=== PATIENT | male | born 1970 | race Two or more races ===

== ENCOUNTER 2019-04-25 18:32 | Inpatient (IN) | payer SELFPAY ==
[~2019-04-25] VITALS: Ht 172.7 cm; Wt 81.6 kg
[2019-04-25 20:07] LABS: CHLORIDE 105 mEq/L (98-107)
[2019-04-25 20:18] LABS: BASOPHILS % 0.3 % (0.0-2.0); EOSINOPHILS % 0.9 % (0.0-5.0); HEMATOCRIT. 43.8 % (42.0-52.0); HEMOGLOBIN. 15.1 g/dL (14.0-18.0); LYMPHOCYTES % 10.4 % (20.0-50.0); MEAN CORPUSCULAR HEMOGLOBIN 30.6 pg (28.0-32.0); MEAN CORPUSCULAR VOLUME 88.7 fL (80.0-94.0); MEAN PLATELET VOLUME 7.9 fl (7.4-10.4); MONOCYTES % 6.2 % (2.0-8.0); NEUTROPHILS % 82.2 % (40.0-76.0); PLATELET 255 x1000/uL (130-400); RED BLOOD CELL COUNT 4.93 mill/uL (4.7-6.1); RED CELL DISTRIBUTION WIDTH 13.2 % (11.6-14.6)
[2019-04-26] MEDS ORDERED: FOLIC ACID 1 MG, THIAMINE HCL 100 MG, MVI, ADULT NO.1 10 ML in DEXTROSE 5% WATER 1,000 ML IV ONE ×4 (13:45)
[2019-04-26] MEDS ORDERED: CLONIDINE 0.1MG TABLET PO PRN (15:00)
[2019-04-26] MEDS ORDERED: GUAIFENESIN 200MG/10ML SUGAR FREE UDC PO PRN (15:00)
[2019-04-26] MEDS ORDERED: ONDANSETRON HCL 4MG/2ML INJ IV PRN (15:00)
[2019-04-26] MEDS ORDERED: HYDROCODONE/ACETAMINOPHEN 5/325MG TABLET PO PRN (15:00)
[2019-04-26] MEDS ORDERED: LORAZEPAM 0.5MG TABLET PO PRN (15:00)
[2019-04-26] MEDS ORDERED: IPRATROPIUM/ALBUTEROL 0.5-3(2.5)MG/3ML NEB HHN PRN (15:00)
[2019-04-26 15:40] LABS: *AMPHETAMINES SCREEN URINE NEGATIVE (NEGATIVE); *BARBITURATES SCREEN URINE NEGATIVE (NEGATIVE); *BENZODIAZEPINES SCREEN URINE NEGATIVE (NEGATIVE); *COCAINE SCREEN URINE NEGATIVE (NEGATIVE)
[2019-04-26 15:41] LABS: CANNABINOID URINE SCREEN NEGATIVE (NEGATIVE); METHADONE URINE SCREEN NEGATIVE (NEGATIVE); OPIATES URINE SCREEN NEGATIVE (NEGATIVE); PHENCYCLIDINE URINE SCREEN NEGATIVE (NEGATIVE)
[2019-04-26] MEDS ORDERED: FOLIC ACID 1MG TABLET PO SCH (22:00)
[2019-04-26] MEDS ORDERED: THIAMINE HCL 100MG TABLET PO SCH (22:00)
[2019-04-26] MEDS ORDERED: MULTIVITAMINS,THER W-MINERALS TABLET PO SCH (22:00)
[2019-04-26 22:20] VITALS: BP 135/85
[2019-04-26 23:00] VITALS: BP 135/85
[2019-04-27] VITALS: BP 130/81
[2019-04-27] MEDS: SODIUM CHLORIDE 0.9% 1,000 ML IV SCH ×3 (00:52→17:21)
[2019-04-27 05:45] VITALS: BP 129/91
[2019-04-27 08:00] VITALS: BP 129/89
[2019-04-27] MEDS: THIAMINE HCL 100MG TABLET PO SCH (09:39)
[2019-04-27] MEDS: FOLIC ACID 1MG TABLET PO SCH (09:40)
[2019-04-27] MEDS: MULTIVITAMINS,THER W-MINERALS TABLET PO SCH (09:40)
[2019-04-27] MEDS ORDERED: LEVETIRACETAM 500 MG in SODIUM CHLORIDE 0.9% 100 ML IV SCH (11:45)
[2019-04-27 12:00] VITALS: BP 123/90
[2019-04-27] MEDS: CHLORDIAZEPOXIDE 25MG CAPSULE PO SCH ×2 (13:13→21:00)
[2019-04-27 16:00] VITALS: BP 114/72
[2019-04-27 20:00] VITALS: BP 122/80
[2019-04-27] MEDS: LEVETIRACETAM 500MG PREMIX 100 ML IV SCH (21:00)
[2019-04-28] VITALS: BP 129/72
[2019-04-28 04:00] VITALS: BP 121/78
[2019-04-28] MEDS: CHLORDIAZEPOXIDE 25MG CAPSULE PO SCH ×3 (05:01→21:05)
[2019-04-28 08:00] VITALS: BP 127/85
[2019-04-28] MEDS: LEVETIRACETAM 500MG PREMIX 100 ML IV SCH ×2 (08:32→20:57)
[2019-04-28] MEDS: THIAMINE HCL 100MG TABLET PO SCH (08:32)
[2019-04-28] MEDS: MULTIVITAMINS,THER W-MINERALS TABLET PO SCH (08:32)
[2019-04-28] MEDS: FOLIC ACID 1MG TABLET PO SCH (08:32)
[2019-04-28 11:02] LABS: BASOPHILS % 0.6 % (0.0-2.0); EOSINOPHILS % 6.6 % (0.0-5.0); HEMATOCRIT. 42.9 % (42.0-52.0); HEMOGLOBIN. 14.5 g/dL (14.0-18.0); LYMPHOCYTES % 8.1 % (20.0-50.0); MEAN CORPUSCULAR HEMOGLOBIN 30.1 pg (28.0-32.0); MEAN CORPUSCULAR VOLUME 89.4 fL (80.0-94.0); MONOCYTES % 7.5 % (2.0-8.0); NEUTROPHILS % 77.2 % (40.0-76.0); PLATELET 264 x1000/uL (130-400); RED CELL DISTRIBUTION WIDTH 12.9 % (11.6-14.6)
[2019-04-28 11:27] LABS: CHLORIDE 105 mEq/L (98-107)
[2019-04-28 12:00] VITALS: BP 129/89
[2019-04-28] MEDS: SODIUM CHLORIDE 0.9% 1,000 ML IV SCH (14:45)
[2019-04-28 16:00] VITALS: BP 125/80
[2019-04-28 20:00] VITALS: BP 115/71
[2019-04-29] VITALS: BP 112/76
[2019-04-29] MEDS: SODIUM CHLORIDE 0.9% 1,000 ML IV SCH ×3 (00:42→20:42)
[2019-04-29 04:00] VITALS: BP 104/62
[2019-04-29] MEDS: CHLORDIAZEPOXIDE 25MG CAPSULE PO SCH ×3 (06:25→21:16)
[2019-04-29 08:00] VITALS: BP 114/78
[2019-04-29] MEDS: LEVETIRACETAM 500MG PREMIX 100 ML IV SCH ×2 (08:07→20:41)
[2019-04-29] MEDS: FOLIC ACID 1MG TABLET PO SCH (08:08)
[2019-04-29] MEDS: THIAMINE HCL 100MG TABLET PO SCH (08:08)
[2019-04-29] MEDS: MULTIVITAMINS,THER W-MINERALS TABLET PO SCH (08:08)
[2019-04-29 12:00] VITALS: BP 119/86
[2019-04-29 16:00] VITALS: BP 106/55
[2019-04-29 20:00] VITALS: BP 117/86
[2019-04-30] VITALS: BP 125/75
[2019-04-30 04:00] VITALS: BP 112/70
[2019-04-30] MEDS: CHLORDIAZEPOXIDE 25MG CAPSULE PO SCH ×3 (05:26→21:22)
[2019-04-30] MEDS: SODIUM CHLORIDE 0.9% 1,000 ML IV SCH ×2 (05:28→17:21)
[2019-04-30 06:37] LABS: BASOPHILS % 0.4 % (0.0-2.0); EOSINOPHILS % 5.3 % (0.0-5.0); HEMATOCRIT. 41.9 % (42.0-52.0); HEMOGLOBIN. 14.5 g/dL (14.0-18.0); MEAN CORPUSCULAR HEMOGLOBIN 30.6 pg (28.0-32.0); MEAN CORPUSCULAR VOLUME 88.3 fL (80.0-94.0); MEAN PLATELET VOLUME 7.8 fl (7.4-10.4); NEUTROPHILS % 77.3 % (40.0-76.0); PLATELET 292 x1000/uL (130-400); RED BLOOD CELL COUNT 4.74 mill/uL (4.7-6.1); RED CELL DISTRIBUTION WIDTH 12.9 % (11.6-14.6)
[2019-04-30 06:40] LABS: CHLORIDE 103 mEq/L (98-107)
[2019-04-30 08:00] VITALS: BP 113/77
[2019-04-30] MEDS: MULTIVITAMINS,THER W-MINERALS TABLET PO SCH (08:12)
[2019-04-30] MEDS: LEVETIRACETAM 500MG PREMIX 100 ML IV SCH ×2 (08:12→23:05)
[2019-04-30] MEDS: THIAMINE HCL 100MG TABLET PO SCH (08:12)
[2019-04-30] MEDS: FOLIC ACID 1MG TABLET PO SCH (08:12)
[2019-04-30 16:00] VITALS: BP 112/67
[2019-04-30 20:00] VITALS: BP 114/75
[2019-05-01] VITALS: BP 112/70
[2019-05-01] MEDS: ACETAMINOPHEN 325MG TABLET PO PRN (01:35)
[2019-05-01] MEDS: SODIUM CHLORIDE 0.9% 1,000 ML IV SCH ×3 (02:10→22:00)
[2019-05-01 04:00] VITALS: BP 102/66
[2019-05-01] MEDS: CHLORDIAZEPOXIDE 25MG CAPSULE PO SCH ×3 (05:09→21:10)
[2019-05-01 06:11] LABS: BASOPHILS % 0.6 % (0.0-2.0); EOSINOPHILS % 1.9 % (0.0-5.0); HEMATOCRIT. 42.1 % (42.0-52.0); HEMOGLOBIN. 14.1 g/dL (14.0-18.0); LYMPHOCYTES % 10.2 % (20.0-50.0); MEAN CORPUSCULAR VOLUME 89.4 fL (80.0-94.0); MEAN PLATELET VOLUME 8.1 fl (7.4-10.4); MONOCYTES % 12.3 % (2.0-8.0); PLATELET 245 x1000/uL (130-400); RED CELL DISTRIBUTION WIDTH 12.8 % (11.6-14.6)
[2019-05-01 06:35] LABS: CHLORIDE 102 mEq/L (98-107)
[2019-05-01 08:00] VITALS: BP 98/62
[2019-05-01] MEDS: MULTIVITAMINS,THER W-MINERALS TABLET PO SCH (08:11)
[2019-05-01] MEDS: LEVETIRACETAM 500MG PREMIX 100 ML IV SCH ×2 (08:11→21:16)
[2019-05-01] MEDS: THIAMINE HCL 100MG TABLET PO SCH (08:12)
[2019-05-01] MEDS: FOLIC ACID 1MG TABLET PO SCH (08:12)
[2019-05-01 12:18] LABS: VITAMIN B12 SERUM 490 pg/mL (211-911)
[2019-05-01 12:21] LABS: FOLIC ACID (FOLATE) SERUM > 20.00 ng/mL (>5.38)
[2019-05-01 12:22] VITALS: BP 100/64
[2019-05-01 16:15] VITALS: BP 118/69
[2019-05-01 20:00] VITALS: BP 131/88
[2019-05-02] VITALS: BP 128/72
[2019-05-02 04:00] VITALS: BP 120/58
[2019-05-02] MEDS: CHLORDIAZEPOXIDE 25MG CAPSULE PO SCH ×3 (05:01→17:27)
[2019-05-02 07:31] LABS: BASOPHILS % 0.7 % (0.0-2.0); EOSINOPHILS % 5.5 % (0.0-5.0); HEMATOCRIT. 40.3 % (42.0-52.0); HEMOGLOBIN. 13.9 g/dL (14.0-18.0); LYMPHOCYTES % 11.5 % (20.0-50.0); MEAN CORPUSCULAR HEMOGLOBIN 30.8 pg (28.0-32.0); MEAN CORPUSCULAR VOLUME 89.3 fL (80.0-94.0); MEAN PLATELET VOLUME 8.1 fl (7.4-10.4); MONOCYTES % 13.4 % (2.0-8.0); NEUTROPHILS % 68.9 % (40.0-76.0); PLATELET 260 x1000/uL (130-400); RED BLOOD CELL COUNT 4.51 mill/uL (4.7-6.1); RED CELL DISTRIBUTION WIDTH 12.8 % (11.6-14.6)
[2019-05-02 07:42] LABS: CHLORIDE 101 mEq/L (98-107)
[2019-05-02 08:00] VITALS: BP 104/70
[2019-05-02] MEDS: SODIUM CHLORIDE 0.9% 1,000 ML IV SCH ×2 (08:14→21:03)
[2019-05-02] MEDS: MULTIVITAMINS,THER W-MINERALS TABLET PO SCH (08:50)
[2019-05-02] MEDS: FOLIC ACID 1MG TABLET PO SCH (08:50)
[2019-05-02] MEDS: LEVETIRACETAM 500MG PREMIX 100 ML IV SCH ×2 (08:50→21:03)
[2019-05-02] MEDS: THIAMINE HCL 100MG TABLET PO SCH (08:51)
[2019-05-02 12:00] VITALS: BP 108/74
[2019-05-02 16:00] VITALS: BP 108/62
[2019-05-02 20:00] VITALS: BP 127/84
[2019-05-03] VITALS: BP 119/82
[2019-05-03 04:00] VITALS: BP 103/71
[2019-05-03] MEDS: SODIUM CHLORIDE 0.9% 1,000 ML IV SCH ×2 (04:45→17:58)
[2019-05-03 08:00] VITALS: BP 92/65
[2019-05-03] MEDS: FOLIC ACID 1MG TABLET PO SCH (09:03)
[2019-05-03] MEDS: MULTIVITAMINS,THER W-MINERALS TABLET PO SCH (09:03)
[2019-05-03] MEDS: LEVETIRACETAM 500MG PREMIX 100 ML IV SCH ×2 (09:04→20:43)
[2019-05-03] MEDS: THIAMINE HCL 100MG TABLET PO SCH (09:04)
[2019-05-03 12:00] VITALS: BP 92/55
[2019-05-03 16:00] VITALS: BP 115/67
[2019-05-03 20:00] VITALS: BP 96/52
[2019-05-04] VITALS: BP 109/68
[2019-05-04 04:00] VITALS: BP 103/66
[2019-05-04 08:00] VITALS: BP 103/69
[2019-05-04] MEDS: FOLIC ACID 1MG TABLET PO SCH (09:47)
[2019-05-04] MEDS: SODIUM CHLORIDE 0.9% 1,000 ML IV SCH ×2 (09:47→21:19)
[2019-05-04] MEDS: THIAMINE HCL 100MG TABLET PO SCH (09:47)
[2019-05-04] MEDS: MULTIVITAMINS,THER W-MINERALS TABLET PO SCH (09:47)
[2019-05-04] MEDS: LEVETIRACETAM 500MG PREMIX 100 ML IV SCH ×2 (09:47→21:13)
[2019-05-04 12:00] VITALS: BP 103/70
[2019-05-04 16:00] VITALS: BP 115/73
[2019-05-04 20:00] VITALS: BP 129/87
[2019-05-05] VITALS: BP 123/75
[2019-05-05 04:00] VITALS: BP 102/63
[2019-05-05 06:00] LABS: BASOPHILS % 0.8 % (0.0-2.0); EOSINOPHILS % 1.6 % (0.0-5.0); HEMATOCRIT. 39.2 % (42.0-52.0); MEAN CORPUSCULAR VOLUME 86.8 fL (80.0-94.0); MEAN PLATELET VOLUME 7.4 fl (7.4-10.4); MONOCYTES % 8.5 % (2.0-8.0); NEUTROPHILS % 80.1 % (40.0-76.0); PLATELET 313 x1000/uL (130-400); RED BLOOD CELL COUNT 4.52 mill/uL (4.7-6.1); RED CELL DISTRIBUTION WIDTH 12.5 % (11.6-14.6)
[2019-05-05 06:08] LABS: CHLORIDE 102 mEq/L (98-107)
[2019-05-05 08:00] VITALS: BP 99/64
[2019-05-05] MEDS: MULTIVITAMINS,THER W-MINERALS TABLET PO SCH (08:52)
[2019-05-05] MEDS: FOLIC ACID 1MG TABLET PO SCH (08:52)
[2019-05-05] MEDS: THIAMINE HCL 100MG TABLET PO SCH (08:52)
[2019-05-05] MEDS: LEVETIRACETAM 500MG PREMIX 100 ML IV SCH ×2 (08:53→20:23)
[2019-05-05 12:00] VITALS: BP 104/74
[2019-05-05 16:00] VITALS: BP 100/63
[2019-05-05] MEDS: SODIUM CHLORIDE 0.9% 1,000 ML IV SCH (16:08)
[2019-05-05 20:00] VITALS: BP 104/58
[2019-05-06] VITALS: BP 130/57
[2019-05-06 04:00] VITALS: BP 118/57
[2019-05-06] MEDS: SODIUM CHLORIDE 0.9% 1,000 ML IV SCH ×3 (05:10→22:37)
[2019-05-06 08:00] VITALS: BP 104/72
[2019-05-06] MEDS: THIAMINE HCL 100MG TABLET PO SCH (09:24)
[2019-05-06] MEDS: FOLIC ACID 1MG TABLET PO SCH (09:24)
[2019-05-06] MEDS: MULTIVITAMINS,THER W-MINERALS TABLET PO SCH (09:24)
[2019-05-06] MEDS: LEVETIRACETAM 500MG PREMIX 100 ML IV SCH ×2 (09:24→22:37)
[2019-05-06 12:00] VITALS: BP 107/69
[2019-05-06 16:00] VITALS: BP 111/78
[2019-05-06 20:00] VITALS: BP 118/79
[2019-05-07] VITALS: BP 117/73
[2019-05-07 04:00] VITALS: BP 102/62
[2019-05-07 08:00] VITALS: BP 106/71
[2019-05-07] MEDS: LEVETIRACETAM 500MG PREMIX 100 ML IV SCH (08:44)
[2019-05-07] MEDS: SODIUM CHLORIDE 0.9% 1,000 ML IV SCH ×2 (08:44→18:00)
[2019-05-07] MEDS: MULTIVITAMINS,THER W-MINERALS TABLET PO SCH (08:45)
[2019-05-07] MEDS: FOLIC ACID 1MG TABLET PO SCH (08:45)
[2019-05-07] MEDS: THIAMINE HCL 100MG TABLET PO SCH (08:45)
[2019-05-07 12:00] VITALS: BP 100/69
[2019-05-07 16:00] VITALS: BP 103/77
[2019-05-07 20:00] VITALS: BP 111/72
[2019-05-07] MEDS: LEVETIRACETAM 500MG/5ML CUP PO SCH (21:07)
[2019-05-08] VITALS: BP 99/74
[2019-05-08 04:00] VITALS: BP 99/62
[2019-05-08 08:00] VITALS: BP 102/64
[2019-05-08] MEDS: MULTIVITAMINS,THER W-MINERALS TABLET PO SCH (08:29)
[2019-05-08] MEDS: THIAMINE HCL 100MG TABLET PO SCH (08:29)
[2019-05-08] MEDS: FOLIC ACID 1MG TABLET PO SCH (08:29)
[2019-05-08] MEDS: LEVETIRACETAM 500MG/5ML CUP PO SCH ×2 (08:29→21:05)
[2019-05-08 12:00] VITALS: BP 101/71
[2019-05-08] MEDS: SODIUM CHLORIDE 0.9% 1,000 ML IV SCH (14:00)
[2019-05-08 16:00] VITALS: BP 103/75
[2019-05-08 20:00] VITALS: BP 106/75
[2019-05-09] VITALS: BP 112/75
[2019-05-09 04:00] VITALS: BP 110/63
[2019-05-09 08:00] VITALS: BP 103/69
[2019-05-09] MEDS: THIAMINE HCL 100MG TABLET PO SCH (08:38)
[2019-05-09] MEDS: LEVETIRACETAM 500MG/5ML CUP PO SCH ×2 (08:38→20:00)
[2019-05-09] MEDS: MULTIVITAMINS,THER W-MINERALS TABLET PO SCH (08:38)
[2019-05-09] MEDS: FOLIC ACID 1MG TABLET PO SCH (08:38)
[2019-05-09] MEDS: SODIUM CHLORIDE 0.9% 1,000 ML IV SCH ×2 (09:53→19:59)
[2019-05-09 12:00] VITALS: BP 106/82
[2019-05-09 16:00] VITALS: BP 100/66
[2019-05-09 20:00] VITALS: BP 111/77
[2019-05-10] VITALS: BP 102/39
[2019-05-10 04:00] VITALS: BP 106/70
[2019-05-10] MEDS: SODIUM CHLORIDE 0.9% 1,000 ML IV SCH (05:16)
[2019-05-10 08:00] VITALS: BP 101/65
[2019-05-10] MEDS: FOLIC ACID 1MG TABLET PO SCH (08:42)
[2019-05-10] MEDS: THIAMINE HCL 100MG TABLET PO SCH (08:42)
[2019-05-10] MEDS: MULTIVITAMINS,THER W-MINERALS TABLET PO SCH (08:42)
[2019-05-10] MEDS: LEVETIRACETAM 500MG/5ML CUP PO SCH ×2 (08:43→20:21)
[2019-05-10 12:00] VITALS: BP 107/74
[2019-05-10 16:00] VITALS: BP 103/68
[2019-05-10] MEDS ORDERED: PIPERONYL/PYRETHRINS (RID)120 ML SHAMPOO TOP NR (17:00)
[2019-05-10 20:00] VITALS: BP 118/74
[2019-05-11] VITALS (8 sets, daily range): BP systolic 100–120; BP diastolic 67–78
[2019-05-11] MEDS: MULTIVITAMINS,THER W-MINERALS TABLET PO SCH (08:59)
[2019-05-11] MEDS: FOLIC ACID 1MG TABLET PO SCH (08:59)
[2019-05-11] MEDS: THIAMINE HCL 100MG TABLET PO SCH (08:59)
[2019-05-11] MEDS: LEVETIRACETAM 500MG/5ML CUP PO SCH ×2 (08:59→21:00)
[2019-05-11] MEDS: SODIUM CHLORIDE 0.9% 1,000 ML IV SCH (11:42)
[2019-05-12] VITALS: BP 98/63
[2019-05-12 04:00] VITALS: BP 102/67
[2019-05-12] MEDS: SODIUM CHLORIDE 0.9% 1,000 ML IV SCH ×2 (07:42→18:09)
[2019-05-12 08:00] VITALS: BP 87/50
[2019-05-12] MEDS: MULTIVITAMINS,THER W-MINERALS TABLET PO SCH (09:15)
[2019-05-12] MEDS: THIAMINE HCL 100MG TABLET PO SCH (09:15)
[2019-05-12] MEDS: FOLIC ACID 1MG TABLET PO SCH (09:15)
[2019-05-12] MEDS: LEVETIRACETAM 500MG/5ML CUP PO SCH ×2 (09:15→20:36)
[2019-05-12 12:00] VITALS: BP 107/62
[2019-05-12 16:00] VITALS: BP 106/74
[2019-05-12 20:00] VITALS: BP 128/87
[2019-05-13] VITALS: BP 100/60
[2019-05-13 04:00] VITALS: BP 95/61
[2019-05-13] MEDS: SODIUM CHLORIDE 0.9% 1,000 ML IV SCH ×2 (04:01→14:10)
[2019-05-13 08:00] VITALS: BP 100/60
[2019-05-13] MEDS: LEVETIRACETAM 500MG/5ML CUP PO SCH ×2 (09:41→21:04)
[2019-05-13] MEDS: FOLIC ACID 1MG TABLET PO SCH (09:41)
[2019-05-13] MEDS: MULTIVITAMINS,THER W-MINERALS TABLET PO SCH (09:41)
[2019-05-13] MEDS: THIAMINE HCL 100MG TABLET PO SCH (09:41)
[2019-05-13 12:00] VITALS: BP 97/60
[2019-05-13 16:00] VITALS: BP 108/65
[2019-05-13 20:00] VITALS: BP 129/79
[2019-05-13] MEDS: ACETAMINOPHEN 325MG TABLET PO PRN (21:04)
[2019-05-14] VITALS: BP 98/55
[2019-05-14 04:00] VITALS: BP 103/62
[2019-05-14 08:00] VITALS: BP 98/56
[2019-05-14] MEDS: FOLIC ACID 1MG TABLET PO SCH (09:16)
[2019-05-14] MEDS: LEVETIRACETAM 500MG/5ML CUP PO SCH ×2 (09:16→20:55)
[2019-05-14] MEDS: THIAMINE HCL 100MG TABLET PO SCH (09:16)
[2019-05-14] MEDS: MULTIVITAMINS,THER W-MINERALS TABLET PO SCH (09:16)
[2019-05-14 12:00] VITALS: BP 89/52
[2019-05-14 16:00] VITALS: BP 95/58
[2019-05-14 20:00] VITALS: BP 90/60
[2019-05-15] VITALS: BP 90/60
[2019-05-15 04:00] VITALS: BP 90/60
== END 2019-05-15 08:55 | disposition left against medical advice (07) | DRG 775 ==
LOC: EDBD 18:32 → ER 18:32 → 6WST 04-26 17:26 → EDBEDREQSVC 04-26 17:55 → ENRESERV 04-26 21:08 → 6EST 04-27 05:25
PROVIDERS: ADMIT Internal Medicine; ATTEND Internal Medicine
DX: F10.129 Alcohol abuse with intoxication, unspecified (principal); G93.41 Metabolic encephalopathy; G93.89 Other specified disorders of brain; S09.90XA Unspecified injury of head, initial encounter; G40.909 Epilepsy, unspecified, not intractable, without status epilepticus; B85.0 Pediculosis due to Pediculus humanus capitis; I10 Essential (primary) hypertension; R36.9 Urethral discharge, unspecified; T51.91XA Toxic effect of unspecified alcohol, accidental (unintentional), initial encounter; Y90.8 Blood alcohol level of 240 mg/100 ml or more; X58.XXXA Exposure to other specified factors, initial encounter; Y93.89 Activity, other specified; Y92.89 Other specified places as the place of occurrence of the external cause; Y99.8 Other external cause status; Z87.828 Personal history of other (healed) physical injury and trauma
CPT/HCPCS: 36415; 70551; 71045; 80048; 80053; 80305; 80320; 82140; 82607; 82746; 83880; 84484; 85025; 93005; 97162; 99285; J1953; J3411; J3490; J7070; G0480